=== PATIENT | female | born 1945 | race Caucasian/White ===

== ENCOUNTER 2022-08-12 21:19 | Emergency (ER) | payer OTHER, BC ==
[~2022-08-12] VITALS: Ht 294.6 cm; Wt 79.4 kg
== END 2022-08-13 02:07 | disposition home or self-care (01) ==
LOC: ER 21:19
DX: S89.91XA Unspecified injury of right lower leg, initial encounter (principal); W01.0XXA Fall on same level from slipping, tripping and stumbling without subsequent striking against object, initial encounter; Y93.9 Activity, unspecified; Y92.9 Unspecified place or not applicable